=== PATIENT | female | born 1940 | race Caucasian/White ===

== ENCOUNTER 2019-04-05 19:24 | Emergency (ER) | payer MEDICARE ==
[~2019-04-05] VITALS: Ht 162.6 cm; Wt 70.3 kg
== END 2019-04-06 00:24 ==
LOC: ER 19:24
DX: F44.6 Conversion disorder with sensory symptom or deficit (principal); F91.3 Oppositional defiant disorder; F43.22 Adjustment disorder with anxiety
CPT/HCPCS: 99282